=== PATIENT | male | born 1960 | race Caucasian/White ===

== ENCOUNTER 2021-11-19 06:12 | Inpatient (IN) ==
[2021-11-19] MEDS ORDERED: Naloxone 0.4 MG/ML INJ IVP PRN (13:12)
[2021-11-19] MEDS ORDERED: Ondansetron 4 MG/2 ML VIAL IVP PRN (13:12)
[2021-11-19] MEDS ORDERED: Acetaminophen 325 MG TABLET PO PRN (13:12)
[2021-11-19] MEDS ORDERED: Lipase (12,000 UN)/Protease (38,000 UN)/Amylase (60,000 UN) 1 EACH CAP.DR PO PRN (13:15)
[2021-11-19] MEDS ORDERED: *HR* OxyCODONE/APAP 5/325 TABLET PO PRN (15:43)
[2021-11-19] MEDS: *HR* OxyCODONE/APAP 7.5/325 TABLET PO PRN (16:14)
[2021-11-19] MEDS: Gabapentin 300 MG CAPSULE PO SCH ×2 (16:14→20:18)
[2021-11-19] MEDS: Lipase (12,000 UN)/Protease (38,000 UN)/Amylase (60,000 UN) 1 EACH CAP.DR PO SCH (18:07)
[2021-11-19] MEDS: Thiamine (B-1) 100 MG, Folic Acid 1 MG, MVI, adult with vitamin K 10 ML in 0.9 % Sodi... IVPB SCH (19:33)
[2021-11-19] MEDS: Mirtazapine 15 MG TABLET PO SCH (20:17)
[2021-11-19] MEDS: Famotidine 20 MG TABLET PO SCH (20:18)
[2021-11-20] MEDS: *HR* OxyCODONE/APAP 7.5/325 TABLET PO PRN ×2 (03:02→20:36)
[2021-11-20 04:46] LABS: Hematocrit 27.5 % (37.5-50.1); Hemoglobin 9.3 g/dL (12.9-16.9); Mean Corpuscular HGB Conc 33.8 g/dL (31.6-35.5); Mean Corpuscular Hemoglobin 30.4 pg (28.0-33.3); Mean Corpuscular Volume 89.9 fL (83.0-100.0); Mean Platelet Volume 10.5 fL (9.4-12.4); Platelet Count 235 K/mcL (140-400); Red Blood Count 3.06 M/mcL (4.19-5.50); Red Cell Distribution Width 14.2 % (11.5-14.5); White Blood Count 5.5 K/mcL (4.3-11.1)
[2021-11-20 05:05] LABS: Albumin 2.2 g/dL (3.5-5.7); Albumin/Globulin Ratio 0.9 (1.1-2.2); Bilirubin,Total 0.3 mg/dL (0.3-1.0); Chol/HDL Ratio 1.9 (0-4.9); Globulin 2.4 g/dL (2.4-3.5); Magnesium 1.9 mg/dL (1.6-2.6); Potassium 3.6 mEq/L (3.5-5.1); Total Protein 4.6 g/dL (6.4-8.9)
[2021-11-20] MEDS: Spironolactone 25 MG TABLET PO SCH (09:31)
[2021-11-20] MEDS: Cholecalciferol (D-3) 1,000 UNIT (25MCG) TABLET PO SCH (09:31)
[2021-11-20] MEDS: Cyanocobalamin (B-12) 1,000 MCG TABLET PO SCH (09:31)
[2021-11-20] MEDS: Gabapentin 300 MG CAPSULE PO SCH ×3 (09:31→20:36)
[2021-11-20] MEDS: Folic Acid 1 MG TABLET PO SCH (09:31)
[2021-11-20] MEDS: Lipase (12,000 UN)/Protease (38,000 UN)/Amylase (60,000 UN) 1 EACH CAP.DR PO SCH ×3 (09:32→16:24)
[2021-11-20] MEDS: Thiamine (B-1) 100 MG, Folic Acid 1 MG, MVI, adult with vitamin K 10 ML in 0.9 % Sodi... IVPB SCH (17:43)
[2021-11-20] MEDS: Mirtazapine 15 MG TABLET PO SCH (20:36)
[2021-11-20] MEDS: Famotidine 20 MG TABLET PO SCH (20:37)
[2021-11-21] MEDS: *HR* Enoxaparin 40 MG/0.4 ML SYRINGE SQ SCH (05:41)
[2021-11-21] MEDS: Levothyroxine 25 MCG TABLET PO SCH (05:41)
[2021-11-21] MEDS: Folic Acid 1 MG TABLET PO SCH (09:16)
[2021-11-21] MEDS: Cyanocobalamin (B-12) 1,000 MCG TABLET PO SCH (09:16)
[2021-11-21] MEDS: Spironolactone 25 MG TABLET PO SCH (09:16)
[2021-11-21] MEDS: Gabapentin 300 MG CAPSULE PO SCH ×3 (09:16→19:46)
[2021-11-21] MEDS: Lipase (12,000 UN)/Protease (38,000 UN)/Amylase (60,000 UN) 1 EACH CAP.DR PO SCH ×3 (09:17→17:28)
[2021-11-21] MEDS: Cholecalciferol (D-3) 1,000 UNIT (25MCG) TABLET PO SCH (09:17)
[2021-11-21] MEDS: Thiamine (B-1) 100 MG, Folic Acid 1 MG, MVI, adult with vitamin K 10 ML in 0.9 % Sodi... IVPB SCH (17:28)
[2021-11-21] MEDS: Mirtazapine 15 MG TABLET PO SCH (19:47)
[2021-11-21] MEDS: *HR* LORazepam 1 MG TABLET PO PRN (19:47)
[2021-11-21] MEDS: Famotidine 20 MG TABLET PO SCH (19:47)
[2021-11-22] MEDS ORDERED: Haloperidol Lactate 5 MG/ML VIAL IVP ONE (00:27)
[2021-11-22] MEDS: *HR* LORazepam 1 MG TABLET PO PRN ×3 (00:44→17:51)
[2021-11-22] MEDS ORDERED: diazePAM 10 MG/2 ML SYRINGE IVP PRN ×2 (02:31)
[2021-11-22] MEDS: Levothyroxine 25 MCG TABLET PO SCH (03:06)
[2021-11-22] MEDS: *HR* Enoxaparin 40 MG/0.4 ML SYRINGE SQ SCH (06:32)
[2021-11-22] MEDS: Spironolactone 25 MG TABLET PO SCH (09:39)
[2021-11-22] MEDS: Lipase (12,000 UN)/Protease (38,000 UN)/Amylase (60,000 UN) 1 EACH CAP.DR PO SCH ×3 (09:39→16:56)
[2021-11-22] MEDS: Cholecalciferol (D-3) 1,000 UNIT (25MCG) TABLET PO SCH (09:40)
[2021-11-22] MEDS: Gabapentin 300 MG CAPSULE PO SCH ×3 (09:40→21:04)
[2021-11-22] MEDS: Folic Acid 1 MG TABLET PO SCH (09:40)
[2021-11-22] MEDS: Cyanocobalamin (B-12) 1,000 MCG TABLET PO SCH (09:40)
[2021-11-22 10:05] LABS: Hematocrit 30.5 % (37.5-50.1); Hemoglobin 10.2 g/dL (12.9-16.9); Mean Corpuscular HGB Conc 33.4 g/dL (31.6-35.5); Mean Corpuscular Hemoglobin 30.1 pg (28.0-33.3); Platelet Count 224 K/mcL (140-400); Red Blood Count 3.39 M/mcL (4.19-5.50); Red Cell Distribution Width 14.4 % (11.5-14.5); White Blood Count 7.3 K/mcL (4.3-11.1)
[2021-11-22 10:19] LABS: Albumin 2.3 g/dL (3.5-5.7); Albumin/Globulin Ratio 0.9 (1.1-2.2); Bilirubin,Total 0.3 mg/dL (0.3-1.0); Globulin 2.5 g/dL (2.4-3.5); Magnesium 1.6 mg/dL (1.6-2.6); Potassium 3.8 mEq/L (3.5-5.1); Total Protein 4.8 g/dL (6.4-8.9)
[2021-11-22] MEDS ORDERED: 0.9 % Sodium Chloride 500 ML IVC ONE (18:55)
[2021-11-22] MEDS ORDERED: 0.9 % Sodium Chloride 1,000 ML IVC SCH (19:00)
[2021-11-22] MEDS: Famotidine 20 MG TABLET PO SCH (21:03)
[2021-11-22] MEDS: Mirtazapine 15 MG TABLET PO SCH (21:04)
[2021-11-23 05:22] LABS: Hematocrit 28.4 % (37.5-50.1); Hemoglobin 9.8 g/dL (12.9-16.9); Mean Corpuscular HGB Conc 34.5 g/dL (31.6-35.5); Mean Corpuscular Hemoglobin 30.5 pg (28.0-33.3); Mean Corpuscular Volume 88.5 fL (83.0-100.0); Platelet Count 200 K/mcL (140-400); Red Blood Count 3.21 M/mcL (4.19-5.50); Red Cell Distribution Width 14.2 % (11.5-14.5); White Blood Count 6.4 K/mcL (4.3-11.1)
[2021-11-23 05:35] LABS: Alanine Aminotransferase 27 Units/L (7-52); Albumin 2.4 g/dL (3.5-5.7); Alkaline Phosphatase 140 Units/L (34-104); Aspartate Amino Transferase 37 Units/L (13-39); BUN/Creatinine Ratio 19 (6-26); Bilirubin,Total 0.4 mg/dL (0.3-1.0); Blood Urea Nitrogen 16 mg/dL (6-20); Calcium 8.4 mg/dL (8.6-10.3); Carbon Dioxide 25 mEq/L (23-29); Chloride 103 mEq/L (98-107); Globulin 2.4 g/dL (2.4-3.5); Glucose 91 mg/dL (70-105); Magnesium 1.6 mg/dL (1.6-2.6); Osmolality,Calculated 273 (280-300); Potassium 4.3 mEq/L (3.5-5.1); Sodium 131 mEq/L (136-145); Total Protein 4.8 g/dL (6.4-8.9)
[2021-11-23] MEDS: Gabapentin 300 MG CAPSULE PO SCH (08:34)
[2021-11-23] MEDS: *HR* Enoxaparin 40 MG/0.4 ML SYRINGE SQ SCH (08:34)
[2021-11-23] MEDS: Cholecalciferol (D-3) 1,000 UNIT (25MCG) TABLET PO SCH (08:35)
[2021-11-23] MEDS: Lipase (12,000 UN)/Protease (38,000 UN)/Amylase (60,000 UN) 1 EACH CAP.DR PO SCH ×2 (08:35→10:57)
[2021-11-23] MEDS: Folic Acid 1 MG TABLET PO SCH (08:35)
[2021-11-23] MEDS: Cyanocobalamin (B-12) 1,000 MCG TABLET PO SCH (08:35)
[2021-11-23] MEDS: Spironolactone 25 MG TABLET PO SCH (08:35)
[2021-11-23] MEDS: Levothyroxine 25 MCG TABLET PO SCH (08:35)
[2021-11-23] MEDS ORDERED: *HR* Rocuronium Bromide 50 MG/5 ML VIAL ONE (10:00)
[2021-11-23] MEDS ORDERED: *HR* Etomidate 20 MG/10 ML AMPUL IVP ONE (10:00)
[2021-11-23] MEDS ORDERED: *HR* EPINEPHrine 1 MG/10 ML SYRINGE ONE (10:00)
[2021-11-23] MEDS ORDERED: 0.9 % Sodium Chloride 1,000 ML IV.SOLN ONE (10:00)
[2021-11-23] MEDS ORDERED: *HR* Atropine Sulfate 1 MG/10 ML SYRINGE ONE (10:00)
[2021-11-23] MEDS ORDERED: *HR* Amiodarone 450 MG/9 ML VIAL IVC ONE (10:00)
[2021-11-23 10:13] LABS: ABG Base Excess 0 mEq/L (-2 to 3); ABG HCO3 28 mEq/L (21-27); ABG Oxygen Saturation 86 % (95-98); ABG PCO2 64 mmHg (35-45); ABG PH 7.25 pH Units (7.32-7.45); ABG PO2 61 mmHg (85-104); ABG TCO2 30 mEq/L (20-26)
[2021-11-23 10:36] LABS: Alanine Aminotransferase 28 Units/L (7-52); Albumin 2.5 g/dL (3.5-5.7); Alkaline Phosphatase 145 Units/L (34-104); Aspartate Amino Transferase 37 Units/L (13-39); BUN/Creatinine Ratio 19 (6-26); Bilirubin,Total 0.4 mg/dL (0.3-1.0); Blood Urea Nitrogen 15 mg/dL (6-20); Calcium 8.4 mg/dL (8.6-10.3); Carbon Dioxide 29 mEq/L (23-29); Glucose 204 mg/dL (70-105); Magnesium 1.5 mg/dL (1.6-2.6); Potassium 3.8 mEq/L (3.5-5.1)
[2021-11-23 10:56] LABS: Albumin/Globulin Ratio 0.8 (1.1-2.2); Globulin 3.2 g/dL (2.4-3.5); Total Protein 5.7 g/dL (6.4-8.9)
[2021-11-23] MEDS ORDERED: Ipratropium/Albuterol Neb 3 ML IH SCH (11:00)
[2021-11-23 11:26] LABS: Chloride 103 mEq/L (98-107); Osmolality,Calculated 287 (280-300); Sodium 135 mEq/L (136-145)
[2021-11-23] MEDS ORDERED: Iopamidol - 370 500 ML MLS IVP ONE (11:43)
[2021-11-23] MEDS ORDERED: *HR* Midazolam HCl 2 MG/2 ML VIAL ONE (13:06)
[2021-11-23 13:07] LABS: ABG Base Excess -1 mEq/L (-2 to 3); ABG HCO3 27 mEq/L (21-27); ABG Oxygen Saturation 88 % (95-98); ABG PCO2 56 mmHg (35-45); ABG PH 7.29 pH Units (7.32-7.45); ABG PO2 61 mmHg (85-104); ABG TCO2 28 mEq/L (20-26)
[2021-11-23] MEDS ORDERED: *HR* Midazolam HCl 2 MG/2 ML VIAL IVP ONE (13:09)
[2021-11-23] MEDS ORDERED: Midazolam HCl 50 MG/50 ML IV.SOLN IVC SCH (13:15)
[2021-11-23] MEDS ORDERED: SODIUM CHLORIDE IVC SCH ×2 (13:30)
[2021-11-23] MEDS ORDERED: MIDAZOLAM HCL IVC SCH ×2 (13:30)
[2021-11-23 13:46] VITALS: BP 134/84; TEMP 98
[2021-11-23] MEDS ORDERED: Morphine Sulfate 2 MG/ML SYRINGE IVP ONE (13:48)
[2021-11-23 13:51] VITALS: PULSE 71
[2021-11-23 16:00] VITALS: RESP 14; O2SAT 100
[2021-11-24] MEDS ORDERED: levoFLOXacin 750 MG/150 ML 750 MG/150 ML BAG IVPB SCH (13:27)
== END 2021-11-23 15:44 | disposition short-term general hospital (02) | DRG 896 ==
LOC: INPGRE
PROVIDERS: ADMIT Internal Medicine; ATTEND Family Medicine